=== PATIENT | male | born 1980 | race Caucasian/White ===

== ENCOUNTER → 2024-10-01 13:42 | Outpatient (REF) | payer OTHER, SELFPAY | LOC: RCS 13:42 | PROVIDERS: ATTENDING PHYSICIAN Family Medicine | DX: Z00.00 Encounter for general adult medical examination without abnormal findings (principal); Z13.6 Encounter for screening for cardiovascular disorders | CPT/HCPCS: 93005 ==

== ENCOUNTER 2024-12-18 06:39 | Day surgery (SDC) | payer OTHER, SELFPAY | END 2024-12-18 13:01 | disposition home or self-care (01) | LOC: GI 06:39 | PROVIDERS: ATTENDING PHYSICIAN Internal Medicine | DX: Z12.11 Encounter for screening for malignant neoplasm of colon (principal); K62.89 Other specified diseases of anus and rectum | CPT/HCPCS: G0121 ==

== ENCOUNTER → 2025-10-22 15:33 | Outpatient (REF) | payer SELFPAY | LOC: RAD 15:33 | PROVIDERS: ATTENDING PHYSICIAN Family Medicine | DX: E78.2 Mixed hyperlipidemia (principal) | CPT/HCPCS: 75571 ==